=== PATIENT | male | born 1950 | race Two or more races ===

== ENCOUNTER → 2017-08-25 | Outpatient (CLI) | payer OTHER ==
[~2017-08-25] VITALS: Ht 152.4 cm; Wt 73.9 kg
[~2017-08-25] MED LIST: PROVENTIL3 ML/2.5 M IH; ZYNCOF 20-400120 ML PO; [UNRECOGNIZED DRUG - OTHER]
== END | disposition home or self-care (01) ==
LOC: PPHC 09:41
DX: J06.9 Acute upper respiratory infection, unspecified (principal); R05 Cough; J20.8 Acute bronchitis due to other specified organisms

== ENCOUNTER 2018-03-06 11:10 | Outpatient (CLI) | payer OTHER | END 2018-03-06 11:15 | disposition home or self-care (01) | LOC: SONOGRAMA 11:10 | DX: M81.0 Age-related osteoporosis without current pathological fracture (principal); Z13.820 Encounter for screening for osteoporosis; N20.0 Calculus of kidney ==

== ENCOUNTER → 2018-03-06 | Outpatient (CLI) | payer OTHER | END | disposition home or self-care (01) | LOC: NUCLEAR 11:57 | DX: M81.0 Age-related osteoporosis without current pathological fracture (principal); Z13.820 Encounter for screening for osteoporosis; N20.0 Calculus of kidney ==

== ENCOUNTER 2020-04-13 11:53 | Outpatient (CLI) | payer OTHER | END 2020-04-13 12:13 | disposition home or self-care (01) | LOC: NUCLEAR 11:53 | PROVIDERS: ATTEND Internal Medicine | DX: M81.0 Age-related osteoporosis without current pathological fracture (principal) ==